=== PATIENT | female | born 1940 | race Caucasian/White ===

== ENCOUNTER → 2017-08-09 | Day surgery (SDC) | payer OTHER ==
[~2017-08-09] MED LIST: IV RINGERS SOLUTION,LACTATED 1,000 ML IV ONE; LIDOCAINE 2% PF Vial for OR 5 ML VIAL. ONE; PROPOFOL 40 ML IV ONE
--- NOTE | 2017-08-13 10:13 | PATHOLOGY ---
PATHOLOGY REPORT * * * * * * * * FINAL DIAGNOSIS: Colon biopsy, distal sigmoid polyp: - Hyperplastic polyp. (JPM:adriane; 08/13/2017) COMMENT: There are no adenomatous changes or evidence of malignancy. REPORT ELECTRONICALLY SIGNED BY: Hoang Mccormick M.D. DATE/TIME: 08/13/2017 10:12 * * * * * * * * GROSS PATHOLOGY: Received in formalin labeled "Pepe, distal sigmoid polyp" and consists of a 0.3 cm tyler mucosal biopsy that is totally submitted as A1. (YADIRA; 08/12/2017) INITIAL CPT CODE(S): A; 25638 Professional services [place] [address] Technical services performed by [facility] at [address] [place] [address]. SPECIMEN(S) RECEIVED: A.Distal sigmoid polyp CLINICAL HISTORY: Weight loss, change in bowel habits PATIENT: MORGAN ASTORGA Leana /AGE: 804/19/1940 (Age: 77) PATIENT #: [id number] ALT CASE #: SPECIMEN COLLECTION DATE: 08/09/2017 SPECIMEN RECEIVED DATE: 08/12/2017 [facility] - [id number] [place] [address] - PHONE: [phone] * * * END OF REPORT * * *
== END | disposition home or self-care (01) ==
LOC: SURG 10:07
PROVIDERS: ATTEND Internal Medicine Gastroenterology
DX: D12.5 Benign neoplasm of sigmoid colon (principal); K57.30 Diverticulosis of large intestine without perforation or abscess without bleeding; I48.91 Unspecified atrial fibrillation; I10 Essential (primary) hypertension; E03.9 Hypothyroidism, unspecified
CPT/HCPCS: 45380; 88305; J2704; J7120; 45385; J2001